=== PATIENT | female | born 1965 | race Two or more races ===

== ENCOUNTER → 2016-08-12 | Outpatient (CLI) | payer OTHER | LOC: CIMAGING 08:10 | PROVIDERS: ATTEND Internal Medicine | DX: R91.8 Other nonspecific abnormal finding of lung field (principal); R00.2 Palpitations; R06.02 Shortness of breath; R06.09 Other forms of dyspnea | CPT/HCPCS: 71020-PO ==

== ENCOUNTER → 2017-02-07 | Outpatient (CLI) | payer OTHER | LOC: FIMAGING 13:12 | PROVIDERS: ATTEND Specialist | DX: Z12.31 Encounter for screening mammogram for malignant neoplasm of breast (principal); Z80.3 Family history of malignant neoplasm of breast | CPT/HCPCS: G0202 ==

== ENCOUNTER → 2018-03-05 | Outpatient (CLI) | payer OTHER | LOC: FIMAGING 07:33 | PROVIDERS: ATTEND Obstetrics & Gynecology | DX: Z12.31 Encounter for screening mammogram for malignant neoplasm of breast (principal); Z80.3 Family history of malignant neoplasm of breast ==